=== PATIENT | female | born 1985 | race African-American/Black ===

== ENCOUNTER → 2016-12-19 | Outpatient (CLI) | payer MEDICAID ==
[2016-12-19 16:38] LABS: CHLAM PCR NOT DETECTED (NOT DETECT)
== END ==
LOC: LAB 14:43
PROVIDERS: ATTEND Physician Assistant
DX: N39.0 Urinary tract infection, site not specified (principal); N89.8 Other specified noninflammatory disorders of vagina; R10.84 Generalized abdominal pain
CPT/HCPCS: 87086; 87210; 87491; 87591

== ENCOUNTER 2017-04-01 13:28 | Emergency (ER) | payer SELFPAY ==
[2017-04-01] MEDS ORDERED: KETOROLAC TROMETHAMINE 60 MG/2 ML SDV IM ONE (14:04)
--- NOTE | 2017-04-01 14:07 | ER Document Report ---
ED Extremity Problem, Lower - General Chief Complaint: Knee Pain Stated Complaint: LEFT KNEE PAIN Time Seen by Provider: 04/01/17 14:01 Mode of Arrival: Ambulatory Information source: Patient, Friend TRAVEL OUTSIDE OF THE [place] IN LAST 30 DAYS: No - HPI Notes: 31 yr old female pt presents today with complaints of left knee pain x 4 hours ago opening a door x 4 hours aog. Pain 6/10, throbbing and constant. Tried otc motrin without full relief. Reports some swelling. Has not tried any icing. previous hx of left knee MCL, ACL x 10 yeras ago, was seen in [place] for repair. denies . Unable to bear full weight. Denies any n/t in affected limb. Worse with ambulation, better when at rest. denies hitting head or change in loc. Denies any cp, sob, n/v/d, abd pain, dysuria and hematuria. - Related Data Allergies/Adverse Reactions: No Known Allergies Allergy (Verified 04/01/17 13:30) Past Medical History - General Information source: Patient - Social History Smoking Status: Unknown if Ever Smoked Family History: Reviewed & Not Pertinent Pulmonary Medical History: Reports: Hx Asthma Past Surgical History: Reports: Hx Section, Hx Orthopedic Surgery - L elbow, L knee - Immunizations Hx Diphtheria, Pertussis, Tetanus Vaccination: Yes Hx Pneumococcal Vaccination: 04/20/13 Review of Systems - Review of Systems Constitutional: No symptoms reported EENT: No symptoms reported Cardiovascular: No symptoms reported Respiratory: No symptoms reported Gastrointestinal: No symptoms reported Genitourinary: No symptoms reported Female Genitourinary: No symptoms reported Musculoskeletal: See HPI Skin: No symptoms reported Hematologic/Lymphatic: No symptoms reported Neurological/Psychological: No symptoms reported Physical Exam - Vital signs Vitals: Temp Pulse Resp BP Pulse Ox 98.6 F 104 H 16 125/77 98 04/01/17 13:39 04/01/17 13:39 04/01/17 13:39 04/01/17 13:39 04/01/17 13:39 Interpretation: Tachycardic - General General appearance: Appears well In distress: None - Respiratory Respiratory status: No respiratory distress Chest status: Nontender Breath sounds: Normal Chest palpation: Normal - Cardiovascular Rhythm: Regular, Tachycardia Heart sounds: Normal auscultation Murmur: No Pulses: Normal: Radial Normal capillary refill: Yes - Extremities Knee: Other - left knee pain with palpation to lateral aspect of knee. negative riki's sign. anterior and posterior drawer test negative.Dtr + 2 in BLE. Full motor and sensory function. Negative lachmans test and posterior/anterior drawer test. No open wounds. No induration or drainage. 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 On re-exam, patient is symptomatically improved. Discussed the results of the radiology as well as the diagnosis at great length. Discussed the need to return to the ER for any new or worsening sx. Patient understands to take the Rx as directed. All questions answered. Patient comfortable with the decision to go home. - Vital Signs Vital signs: Temp Pulse Resp BP Pulse Ox 98.6 F 104 H 16 125/77 98 04/01/17 13:39 04/01/17 13:39 04/01/17 13:39 04/01/17 13:39 04/01/17 13:39 Discharge - Discharge Clinical Impression: Left knee sprain Qualifiers: Encounter type: initial encounter Involved ligament of knee: medial collateral ligament Qualified Code(s): S83.412A - Sprain of medial collateral ligament of left knee, initial encounter Clinical Impression: (Ruled Out): Left knee pain Condition: Good Disposition: HOME, SELF-CARE Instructions: Use of Crutches ([facility]), Ice & Elevation ([facility]), Knee Immobilizing Splint ([facility]), Sprained Knee ([facility]) Additional Instructions: Knee Immobilizing Splint The knee immobilizing splint will protect the injury while healing begins. This type of splint does not allow the knee to bend at all. No running or sports will be possible. If the splint allows painfree walking, it's giving adequate protection. If there is still significant pain, crutches may be needed as well. Don't do anything that hurts. Adjusted the splint, if necessary. The stiffeners on the sides are attached with Velcro, so they can be easily moved to adjust for thigh and calf size. If you need help with these adjustments, come back. You will lose muscle strength in the thigh while using this splint. The doctor will advise you if it's safe to do isometric knee exercises while you use it. SPRAIN: Your injury is a sprain. A sprain results from stretching or tearing of the ligaments, usually from a twisting injury. The ligaments will require time and protection in order to heal properly. Many sprains are quite disabling and should be taken seriously. The usual initial treatment of sprains is cold packs, elevation, and rest of the injured area. Your physician has assessed the seriousness of your ligament injury, and has outlined a treatment plan. Understand that this treatment may change, depending on how you progress. If a re-examination was recommended, it is important that you follow up as instructed. Call the doctor any time if there is severe pain, numbness, or loss of function in the injured area. SPRAINED KNEE: Your sprained knee results from a stretching or tearing of the ligaments which support the joint. This often results from a bending stress -- such as a twisting fall while skiing or a "clip" while playing football. The ligaments will require time and protection to heal adequately. A knee sprain can be quite serious, and should be taken seriously. The usual treatment is splinting of the knee, ice packs, and elevation. You shouldn't walk on the leg if weightbearing is painful. Unless the sprain is obviously a minor one, follow-up exam is very important. The degree of ligament damage often cannot be fully assessed at first due to muscle spasm and pain. Your treatment plan may change based on the physician's findings during your follow-up examination. Call the doctor at once if there is severe swelling, increasing pain, numbness, or other alarming symptoms. SUSPECTED INTERNAL KNEE INJURY: The examiner of your injured knee suspects an internal injury to the cartilage or internal ligaments. This must be further investigated by an benefits specialist. The knee should be protected, ice packed, and elevated while awaiting your follow-up exam by the orthopedist. If there is severe swelling, severe pain, or any new symptoms while awaiting your exam, you should call the orthopedist. (If he/she is unavailable, call us or return for re-examination.) KNEE IMMOBILIZING SPLINT: The knee immobilizing splint will protect the injury while healing begins. This type of splint does not allow the knee to bend at all. No running or sports will be possible. If the splint allows painfree walking, it's giving adequate protection. If there is still significant pain, crutches may be needed as well. Don't do anything that hurts. Adjusted the splint, if necessary. The stiffeners on the sides are attached with Velcro, so they can be easily moved to adjust for thigh and calf size. If you need help with these adjustments, come back. You will lose muscle strength in the thigh while using this splint. The doctor will advise you if it's safe to do isometric knee exercises while you use it. USE OF CRUTCHES: The doctor has recommended that you not bear weight at this time. You will need to use crutches. Adjust the crutches so the tops come to about two inches under the armpit while you are standing upright. Use your hands -- not your armpits -- to support your weight. To get into a chair, support yourself with one crutch on the injured side. Hold the chair with the other hand, then lower yourself while putting all your weight on the good leg. Going up stairs is `good leg up, step up, then bring up crutches and bad leg.' Down stairs is `bad leg and crutches down, then bring good leg down.' If you develop numbness or swelling in an arm or hand, you are using the crutches incorrectly. Return if you are having any problems with the crutches. ICE & ELEVATION: Apply ice packs frequently against the painful area. Many different schedules are recommended, such as "20 minutes on, 20 minutes off" or "one hour ice, two hours rest." If you need to work, you may need to go longer between ice treatments. You should plan to have the area ice packed AT LEAST one- fourth of the time. The ice should be applied over the wrap, tape, or splint, or over a layer of cloth -- not directly against the skin. Some ice bags have a built-in cloth and can be put directly on the skin. Your injured part should be elevated as much as possible over the next 48 hours. Try to keep the injury above the level of the heart. Avoid use of the injured area. Elevation and rest will decrease the swelling. FOLLOW-UP CARE: If you have been referred to a physician for follow-up care, call the physician s office for an appointment as you were instructed or within the next two days. If you experience worsening or a significant change in your symptoms, notify the physician immediately or return to the Emergency Department at any time for re-evaluation. Do not drive, operate heavy machinery, or drink ETOH while taking flexeril. Return immediately for any new or worsening symptoms. Follow up with primary care provider, call tomorrow to make followup appointment. Orthopedic Office [facility] [address] [place], [place] [id number] phone: [phone] Prescriptions: Cyclobenzaprine HCl [Flexeril 10 mg Tablet] 10 mg PO TIDP PRN #9 tab PRN Reason: Meloxicam 15 mg PO DAILY #7 tablet Referrals: MIROSLAVA FITZPATRICK MD [ACTIVE STAFF] - Follow up as needed
--- NOTE | 2017-04-01 14:38 | RADIOLOGY REPORT (SQ) ---
EXAM DESCRIPTION: KNEE LEFT 4 VIEW COMPLETED DATE/TIME: 04/01/2017 2:21 pm REASON FOR STUDY: sudden onset L knee pain, heard a "pop" COMPARISON: Left knee x-ray 06/25/2014. NUMBER OF VIEWS: Four views. TECHNIQUE: AP, lateral, and both oblique radiographic images acquired of the left knee. LIMITATIONS: None. FINDINGS: MINERALIZATION: Normal. BONES: No acute fracture or dislocation. Postsurgical changes are seen at the distal femur and proxi mal tibia. JOINT: No effusion. SOFT TISSUES: No soft tissue swelling. No radio-opaque foreign body. IMPRESSION: Postsurgical changes at the left knee with no radiographic evidence of acute fracture. TECHNICAL DOCUMENTATION: JOB ID: [id number] [employer]- All Rights Reserved
[2017-04-01 15:19] VITALS: BP 123/89
== END 2017-04-01 15:18 | disposition home or self-care (01) ==
LOC: ER 13:28
DX: S83.412A Sprain of medial collateral ligament of left knee, initial encounter (principal); M25.562 Pain in left knee; M79.89 Other specified soft tissue disorders; X58.XXXA Exposure to other specified factors, initial encounter
CPT/HCPCS: 99283; 96372; 73562; L1830; J1885